=== PATIENT | female | born 1970 | race Caucasian/White ===

== ENCOUNTER 2018-09-22 01:21 | Emergency (ER) | payer SELFPAY ==
[~2018-09-22] VITALS: Ht 167.6 cm; Wt 100.0 kg
--- NOTE | 2018-09-22 01:27 | NUR ---
PT UNABLE TO ANSWER ANY QUESTIONS AT THIS TIME REGARDING MEDICAL HISTORY
[2018-09-22] MEDS ORDERED: normal saline 1000ml 1,000 ML IV ONE (03:00)
[2018-09-22 03:04] VITALS: BP 127/90
--- NOTE | 2018-09-22 03:42 | NUR ---
PT STAYING AT [place] [phone] ([phone]) TRIED CALLING TO MAKE SURE PT HAD SOMEONE TO RECEIVE HER, NO ONE ANSWERING THE PHONE WILL CONTINUE TO TRY AND MAKE CONTACT.
--- NOTE | 2018-09-22 04:54 | NUR ---
RAVI ENRIQUE OF PTS AUNT WHO IS STAYING AT [facility] IN ROOM 245, SHE WILL BE AT [place] TO RECEIVE PT. I RIDE TO PT.
== END 2018-09-22 04:57 | disposition home or self-care (01) ==
LOC: ER 01:22
DX: F10.129 Alcohol abuse with intoxication, unspecified (principal); R11.10 Vomiting, unspecified; Y90.9 Presence of alcohol in blood, level not specified
CPT/HCPCS: 96360; 99284; J7030